=== PATIENT | female | born 1975 | race Caucasian/White ===

== ENCOUNTER 2017-01-09 12:01 | Emergency (ER) | payer BC ==
[~2017-01-09] VITALS: Ht 160 cm; Wt 74.3 kg
[~2017-01-09 12:01] MED LIST: BENTYL20 MG PO; CALCIUM 500 MG1 EACH PO; FLAGYL500 MG PO; IMODIUM MS REL1 EACH PO; LEVOTHYROXINE100 MCG PO; MULTI-VITAMIN1 EAC4 PO; PRENATAL TABLE1 EAC3 PO; VITAMIN D31000 UNIT PO; ZYRTEC10 M3 PO
[2017-01-09 13:34] LABS: HEMATOCRIT 40.7 % (36.0-46.0); MCH 30.7 PG (29.0-34.0); MCHC 33.9 G/DL (30.0-36.0); MCV 90.6 FL (83-99); MEAN PLAT.VOLUME 9.1 uM^3 (9.5-12.4); PLATELET COUNT 273 K/uL (156-360); RBC DIS.WIDTH-CV 12.3 % (11.8-14.6); RBC DIS.WIDTH-SD 41.1 % (39-53); RED BLOOD COUNT 4.49 M/uL (3.80-5.20); WHITE BLOOD COUNT 19.6 K/uL (4.1-10.2)
[2017-01-09 13:41] LABS: D-DIMER ELISA 0.48 mg/L FEU (< 0.57)
[2017-01-09 13:43] LABS: CHLORIDE 106 mEq/L (99-109); POTASSIUM 4.2 mEq/L (3.7-5.4); SODIUM 139 mEq/L (136-147)
[2017-01-09 13:45] LABS: GLUCOSE 97 mg/dL (70-99)
[2017-01-09 13:47] LABS: ANION GAP 10 MEQ/L (2-14); TOTAL BILIRUBIN 0.6 mg/dL (0.0-1.0)
[2017-01-09 13:49] LABS: ALKALINE PHOSPHATASE 59 IU/L (3-129); GFR ESTIMATE (CALCULATED) > 59 mL/min/
[2017-01-09 13:50] LABS: UREA NITROGEN (BUN) 7 mg/dL (9-23)
[2017-01-09 13:53] LABS: TROP-I INTERPRETATION NEGATIVE; TROPONIN-I < 0.01 ng/mL (0.0-0.30)
[2017-01-09 14:06] LABS: QUANTITATIVE HCG < 4.0 MIU/ML
[2017-01-09] MEDS ORDERED: NAPROSYN500 MG PO (15:40)
[2017-01-09 16:47] VITALS: BP 121/80
== END 2017-01-09 16:48 | disposition home or self-care (01) ==
LOC: EME 12:01
PROVIDERS: Emergency Medicine
DX: B34.9 Viral infection, unspecified (principal); R07.89 Other chest pain
CPT/HCPCS: 71020; 80053; 84484; 84702; 85027; 85379; 93005; 99281; 99284; J1885; J7030